=== PATIENT | male | born 1975 | race Caucasian/White ===

== ENCOUNTER 2016-11-10 16:41 | Emergency (ER) | payer OTHER ==
[2016-11-10 16:55] VITALS: BP 99/67
[2016-11-10] MEDS ORDERED: Lidocaine 1% with EPINEPHrine 1:100,000 20 ML MDV INJECT ONE (17:17)
[2016-11-10] MEDS ORDERED: Lidocaine 1% with EPINEPHrine 1:100,000 20 ML MDV ONE (17:17)
--- NOTE | 2016-11-10 17:27 | EDM.PDOC ---
ED HPI GENERAL MEDICAL PROBLEM - General Chief Complaint: Upper Extremity Injury/Pain Stated Complaint: [facility] Time Seen by Provider: 11/10/16 16:54 Source of Information: Reports: Patient History Limitations: Reports: Intoxication - History of Present Illness INITIAL COMMENTS - FREE TEXT/NARRATIVE: 41 y/o right-hand dominant male presents with R hand injury. Has been drinking ETOH today. Found outside of bar intoxicated with bleeding R hand. Apparently there was broken glass at the scene. Patient has no idea how he injured his hand. +moderate R hand pain. Denies additional injury. No weakness/numbness. 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(s) Right Hand Pain Score (Numeric/FACES): 4 - Related Data Allergies Allergy/AdvReac Type Severity Reaction Status Date / Time cefaclor [From [facility]] Allergy Other Verified 11/10/16 16:45 Home Meds: Home Meds Albuterol Sulfate [Proair Hfa] 2 puff INH Q4HR PRN 11/10/16 [History] Albuterol Sulfate [Proair Respiclick] 1 dose INH QID PRN 11/10/16 [History] Amoxicillin/Potassium Clav [Amox-Clav 875-125 mg Tablet] 1 tab PO BID 11/10/16 [ History] Budesonide/Formoterol Fumarate [Symbicort 160-4.5 Mcg Inhaler] 2 puff INH BID [History] Ipratropium/Albuterol Sulfate [Iprat-Albut 0.5-3(2.5) mg/3 ml] 1 unit INH QID PRN 11/10/16 [History] Varenicline Tartrate [Chantix] 1 tab PO BID 11/10/16 [History] Past Medical History Respiratory History: Reports: Asthma, Sleep Apnea Other Respiratory History: wears c pap at night Gastrointestinal History: Reports: Chronic Diarrhea, GERD, Hemorrhoids Psychiatric History: Reports: Depression - Past Surgical History Musculoskeletal Surgical History: Reports: Arthroscopic Knee Social & Family History - Tobacco Use Smoking Status *Q: Current Every Day Smoker Years of Tobacco use: 20 Packs/Tins Daily: 0.5 - Caffeine Use Caffeine Use: Reports: Soda - Recreational Drug Use Recreational Drug Use: No Review of Systems - Review of Systems Review Of Systems: See Below Constitutional: Reports: No Symptoms Respiratory: Reports: No Symptoms Cardiovascular: Reports: No Symptoms Skin: Reports: Wound ED EXAM, GENERAL - Physical Exam Exam: See Below Exam Limited By: No Limitations General Appearance: Alert, WD/WN, No Apparent Distress Ears: Normal External Exam Nose: Normal Inspection Throat/Mouth: Normal Inspection, Normal Voice, No Airway Compromise Head: Atraumatic, Normocephalic Neck: Normal Inspection Respiratory/Chest: No Respiratory Distress Cardiovascular: Normal Peripheral Pulses Extremities: Other (R hand: approx 2.5 cm irregular laceration on palmar surface near base of index finger, subcutaneous, foreign debris/dirt/small rocks in wound. distal motor/sensation/perfusion intact. ) Psychiatric: Normal Affect, Normal Mood Skin Exam: Warm, Dry, Intact, Normal Color, No Rash ED TRAUMA EXTREMITY PROCEDURES - Laceration/Wound Repair Right Anterior Hand Lac/Wound Length In cm: 2.5 Appearance: Subcutaneous, Irregular, Moderately Contaminated Distal NVT: Neuro & Vascular Intact, No Tendon Injury Anesthetic Type: Local Local Anesthesia - Lidocaine (Xylocaine): 1% with EPI Local Anesthetic Volume: 4cc Skin Prep: Chlorhexidine (Hibiciens) Exploration/Debridement/Repair: Wound Explored, In a Bloodless Field, Explored to Base, Minimal Debridement, Foreign Material Removed Closed With: Sutures Suture Size: 4-0 # of Sutures: 2 Suture Type: Nylon Sterile Dressing Applied: Nurse Complications: No Course - Vital Signs Last Recorded V/S: Last Vital Signs Temp 36.9 C 11/10/16 16:53 Pulse 94 11/10/16 16:53 Resp 16 11/10/16 16:53 BP 99/67 11/10/16 16:53 Pulse Ox 97 11/10/16 16:53 - Orders/Labs/Meds Meds: Medications Discontinued Medications Generic Name Dose Route Start Last Admin Trade Name Radha PRN Reason Stop Dose Admin Lidocaine/Epinephrine Confirm 11/10/16 17:17 11/10/16 17:18 Xylocaine 1% With Epinephrine 1:100,000 Administered 11/10/16 17:18 Not Given Dose 20 ml .ROUTE .STK-MED ONE Lidocaine/Epinephrine 20 ml 11/10/16 17:17 11/10/16 17:19 Xylocaine 1% With Epinephrine 1:100,000 INJECT 11/10/16 17:18 20 ml ONETIME ONE Administration Departure - Departure Time of Disposition: 18:18 Disposition: Home, Self-Care 01 Clinical Impression: Hand laceration Qualifiers: Encounter type: initial encounter Foreign body presence: without foreign body Laterality: right Qualified Code(s): S61.411A - Laceration without foreign body of right hand, initial encounter Alcohol intoxication Qualifiers: Complication of substance-induced condition: uncomplicated Qualified Code(s): F10.920 - Alcohol use, unspecified with intoxication, uncomplicated - Discharge Information Instructions: Alcohol Intoxication, [id number], Laceration Care, Adult, Easy- to-Read Referrals: Ramiro Alberto MD [Primary Care Provider] - Forms: ED Department Discharge Additional Instructions: 1. Keep wound clean and dry. OK to wash with gentle soap/water. Then dry and cover with antibiotic cream. Keep wound covered until completely healed. Return to the ED for any signs of infection, including increased redness, swelling, pain, or pus under the wound. 2. Sutures should be removed in 10-14 days. You may have them removed by your primary care doctor or walk in clinic/urgent care.
== END 2016-11-10 18:47 | disposition home or self-care (01) ==
LOC: SUPCPDRO 16:41 → JD.ED 16:41
DX: S61.411A Laceration without foreign body of right hand, initial encounter (principal); F10.920 Alcohol use, unspecified with intoxication, uncomplicated; F17.210 Nicotine dependence, cigarettes, uncomplicated; J45.909 Unspecified asthma, uncomplicated; G47.30 Sleep apnea, unspecified; K21.9 Gastro-esophageal reflux disease without esophagitis; F32.9 Major depressive disorder, single episode, unspecified; Z98.890 Other specified postprocedural states; Z88.1 Allergy status to other antibiotic agents; X58.XXXA Exposure to other specified factors, initial encounter
CPT/HCPCS: 12001; 99283-25; 99284-25

== ENCOUNTER 2016-11-13 13:38 | Emergency (ER) | payer OTHER ==
[2016-11-13 14:37] VITALS: BP 154/92
[2016-11-13] MEDS ORDERED: Diphtheria,Pertussis(Acell),Tetanus Vaccine 0.5 ML SDV IM ONE (15:15)
--- NOTE | 2016-11-13 15:21 | EDM.PDOC ---
ED HPI GENERAL MEDICAL PROBLEM - General Chief Complaint: Upper Extremity Injury/Pain Stated Complaint: RE CK FINGER CANT BEND AND NUMB Time Seen by Provider: 11/13/16 14:05 Source of Information: Reports: Patient History Limitations: Reports: No Limitations - History of Present Illness INITIAL COMMENTS - FREE TEXT/NARRATIVE: The patient is a 41-year-old male who comes in with a chief complaint of difficulty moving his right index finger. He was seen here 2 days ago. At that time he was quite intoxicated. He had sustained a wound to the palmar surface of the hand thought likely to a glass shard cutting the hand. The wound was repaired and he was discharged. He comes in today because he's been having difficulty bending his index finger. States that he also some numbness in the finger. No additional complaint. Right Hand Pain Score (Numeric/FACES): 4 - Related Data Allergies Allergy/AdvReac Type Severity Reaction Status Date / Time cefaclor [From [facility]] Allergy Other Verified 11/10/16 16:45 Home Meds: Home Meds Albuterol Sulfate [Proair Hfa] 2 puff INH Q4HR PRN 11/10/16 [History] Albuterol Sulfate [Proair Respiclick] 1 dose INH QID PRN 11/10/16 [History] Amoxicillin/Potassium Clav [Amox-Clav 875-125 mg Tablet] 1 tab PO BID 11/10/16 [ History] Budesonide/Formoterol Fumarate [Symbicort 160-4.5 Mcg Inhaler] 2 puff INH BID [History] Ipratropium/Albuterol Sulfate [Iprat-Albut 0.5-3(2.5) mg/3 ml] 1 unit INH QID PRN 11/10/16 [History] Varenicline Tartrate [Chantix] 1 tab PO BID 11/10/16 [History] Past Medical History Respiratory History: Reports: Asthma, Sleep Apnea Other Respiratory History: wears c pap at night Gastrointestinal History: Reports: Chronic Diarrhea, GERD, Hemorrhoids Psychiatric History: Reports: Depression - Past Surgical History Musculoskeletal Surgical History: Reports: Arthroscopic Knee Social & Family History - Tobacco Use Smoking Status *Q: Current Every Day Smoker Years of Tobacco use: 25 Packs/Tins Daily: 0.5 - Caffeine Use Caffeine Use: Reports: Coffee, Soda - Recreational Drug Use Recreational Drug Use: No Review of Systems - Review of Systems Review Of Systems: See Below Constitutional: Denies: Fever Musculoskeletal: Reports: Hand Pain Neurological: Reports: Numbness, Weakness ED EXAM, GENERAL - Physical Exam Exam: See Below Exam Limited By: No Limitations General Appearance: Alert, WD/WN, No Apparent Distress Head: Atraumatic, Normocephalic Neck: Normal Inspection Respiratory/Chest: No Respiratory Distress Extremities: Other (Right hand: Palmar surface wound at the base of the index finger is repaired with sutures, wound is clean, dry, intact, no erythema or discharge. Index finger is held in extension. Patient is able to flex at the MCP joint but is not able to flex the finger at the DIP or PIP joints. Sensation is present but patient states subjectively feels decreased. No deformities.) Neurological: Alert Course - Vital Signs Last Recorded V/S: Last Vital Signs Temp 36.7 C 11/13/16 14:10 Pulse 85 11/13/16 14:10 Resp 20 11/13/16 14:10 BP 154/92 H 11/13/16 14:10 Pulse Ox 99 11/13/16 14:10 - Orders/Labs/Meds Orders: Active Orders 24 hr Category Date Time Status Vaccines to be Administered [RC] PER UNIT ROUTINE Care 11/13/16 15:15 Active Hand Comp Min 3V Rt [CR] Stat Exams 11/13/16 14:06 Taken Meds: Medications Discontinued Medications Generic Name Dose Route Start Last Admin Trade Name Freq PRN Reason Stop Dose Admin Diphtheria/Tetanus/Acell Pertussis 0.5 ml 11/13/16 15:15 11/13/16 15:25 Adacel IM 11/13/16 15:16 0.5 ml .ONCE ONE Administration - Re-Assessments/Exams Free Text/Narrative Re-Assessment/Exam: 11/13/16 18:06 Right hand x-ray shows normal bony alignment. Patient's exam is quite consistent with a flexor tendon injury. Will splint and referred to hand surgeon in [place] for further care. Patient will call Tuesday for an appointment. Discussed return precautions. Departure - Departure Time of Disposition: 16:00 Disposition: Home, Self-Care 01 Clinical Impression: Flexor tendon laceration of right hand with open wound Qualifiers: Encounter type: initial encounter Qualified Code(s): S66.821A - Laceration of other specified muscles, fascia and tendons at wrist and hand level, right hand , initial encounter - Discharge Information Instructions: Laceration Care, Adult Referrals: Ramiro Alberto MD [Primary Care Provider] - Forms: ED Department Discharge Additional Instructions: 1. Follow up with a hand surgeon as soon as possible, ideally early next week. You may call [facility] in [place] at [phone] to schedule or [facility] in [place] at [phone]. Tell them you have a flexor tendon laceration of the index finger of your right hand that needs to be surgically repaired as soon as possible. - My Orders Last 24 Hours: My Active Orders 11/13/16 14:06 Hand Comp Min 3V Rt [CR] Stat 11/13/16 15:15 Vaccines to be Administered [RC] PER UNIT ROUTINE - Assessment/Plan Last 24 Hours: My Active Orders 11/13/16 14:06 Hand Comp Min 3V Rt [CR] Stat 11/13/16 15:15 Vaccines to be Administered [RC] PER UNIT ROUTINE
--- NOTE | 2016-11-14 19:58 | CR ---
Right hand: Four views of the right hand were obtained. Comparison: No previous hand study. Joint spaces are maintained. Two small foreign objects are identified within the superficial soft tissues around the volar region of the first or second finger. Uncertain if this lies within the soft tissues or on top of the skin. No acute fracture, dislocation or other bony abnormality is seen. Soft tissue swelling is identified. Impression: 1. Several small foreign bodies as described above. Soft tissue swelling is seen. 2. No acute bony abnormality is identified on right hand exam. Diagnostic code #3
== END 2016-11-13 15:45 | disposition home or self-care (01) ==
LOC: JD.ED 13:38
DX: S66.821A Laceration of other specified muscles, fascia and tendons at wrist and hand level, right hand, initial encounter (principal); K21.9 Gastro-esophageal reflux disease without esophagitis; Z23 Encounter for immunization; F17.210 Nicotine dependence, cigarettes, uncomplicated; Z88.1 Allergy status to other antibiotic agents; W25.XXXA Contact with sharp glass, initial encounter
CPT/HCPCS: 73130-26-RT; 73130-RT; 90471; 90715; 99283; 99283-25

== ENCOUNTER 2017-02-27 23:52 | Emergency (ER) | payer OTHER ==
[2017-02-28 00:02] VITALS: BP 160/91
--- NOTE | 2017-02-28 00:07 | EDM.PDOC ---
ED HPI GENERAL MEDICAL PROBLEM - General Chief Complaint: Back Pain or Injury Stated Complaint: BACK PAIN,LEFT LEG GOING NUMB Time Seen by Provider: 02/27/17 23:59 - History of Present Illness INITIAL COMMENTS - FREE TEXT/NARRATIVE: 42-year-old male presents emergency room with low back pain and leg pain. Patient has no recollection of the specific injury to his back however his low back has been been getting more uncomfortable over the last few days. This evening he developed some numbness and tingling down his left leg and into his foot he describes it like his whole foot is tingly not necessarily completely numb. He has had no loss of bowel or bladder control. Patient does not have a history of significant back injuries in the past however he's had multiple mild back injuries over the years. He has been using ibuprofen maximal dose with out much improvement. Back Pain Score (Numeric/FACES): 8 - Related Data Allergies Allergy/AdvReac Type Severity Reaction Status Date / Time cefaclor [From [facility]] Allergy Other Verified 02/27/17 23:58 Home Meds: Home Meds Albuterol Sulfate [Proair Hfa] 2 puff INH Q4HR PRN 11/10/16 [History] Albuterol Sulfate [Proair Respiclick] 1 dose INH QID PRN 11/10/16 [History] Budesonide/Formoterol Fumarate [Symbicort 160-4.5 Mcg Inhaler] 2 puff INH BID [History] Ipratropium/Albuterol Sulfate [Iprat-Albut 0.5-3(2.5) mg/3 ml] 1 unit INH QID PRN 11/10/16 [History] Varenicline Tartrate [Chantix] 1 tab PO BID 11/10/16 [History] Montelukast [Singulair] 10 mg PO BEDTIME 02/27/17 [History] FLUoxetine [PROzac] 60 mg PO DAILY 02/28/17 [History] predniSONE [Prednisone] 40 mg PO BID #20 tablet 02/28/17 [Rx] Past Medical History Respiratory History: Reports: Asthma, Sleep Apnea Other Respiratory History: wears c pap at night Gastrointestinal History: Reports: Chronic Diarrhea, GERD, Hemorrhoids Psychiatric History: Reports: Depression - Past Surgical History Musculoskeletal Surgical History: Reports: Arthroscopic Knee Social & Family History - Tobacco Use Smoking Status *Q: Current Every Day Smoker Years of Tobacco use: 20 Packs/Tins Daily: 0.5 - Caffeine Use Caffeine Use: Reports: Soda - Recreational Drug Use Recreational Drug Use: No ED ROS GENERAL - Review of Systems Review Of Systems: See Below Constitutional: Reports: No Symptoms HEENT: Reports: No Symptoms Respiratory: Reports: No Symptoms GI/Abdominal: Reports: No Symptoms Neurological: Reports: No Symptoms ED EXAM,LOWER BACK PAIN/INJURY - Physical Exam Exam: See Below Exam Limited By: No Limitations General Appearance: Alert, No Apparent Distress Head: Atraumatic, Normocephalic Neck: Normal Inspection, Supple, Non-Tender, Full Range of Motion Respiratory/Chest: No Respiratory Distress, Lungs Clear, Normal Breath Sounds Cardiovascular: Regular Rate, Rhythm, No Edema, No Murmur Back Exam: Normal Inspection, Other (He has some vague muscle tightness in the upper buttocks on the left paraspinous muscles do not seem affected. He has no significant tenderness over the greater trochanter down the left. Straight leg raises at maximal flexion causes some discomfort in the Botox but did not make pain worse down into his leg). No: CVA Tenderness (L), CVA Tenderness (R), Vertebral Tenderness Extremities: Normal Inspection, Non-Tender, No Pedal Edema Neurological: Alert, Normal Mood/Affect, Other (Examination of his left lower leg shows normal month sulfa function throughout sharp dull discrimination is perfectly intact light touch discrimination is intact) Course - Vital Signs Last Recorded V/S: Last Vital Signs Temp 36.6 C 02/28/17 00:00 Pulse 79 02/28/17 00:00 Resp 18 02/28/17 00:00 BP 160/91 H 02/28/17 00:00 Pulse Ox 99 02/28/17 00:00 - Orders/Labs/Meds Meds: Medications Discontinued Medications Generic Name Dose Route Start Last Admin Trade Name Freq PRN Reason Stop Dose Admin Famotidine 20 mg 02/28/17 00:29 02/28/17 00:33 Pepcid PO 02/28/17 00:30 20 mg ONETIME ONE Administration Prednisone 60 mg 02/28/17 00:29 02/28/17 00:33 Prednisone PO 02/28/17 00:30 60 mg ONETIME ONE Administration - Re-Assessments/Exams Free Text/Narrative Re-Assessment/Exam: 02/28/17 00:30 Patient presents with what sounds like a low back strain he has no history of a specific injury. He has no bony discomfort in his back is exam is a little inconsistent however the patient I believe is telling us to the best of his ability what is going on its just with the present the symptoms present he has some muscle tightness in his lower Buttocks and down his leg he's developed some tingling sensation in his foot he cannot clarify where in his foot is just the whole thing feels a little numb. He is sitting up talking to me with his legs extended and this seems to be a more comfortable positions than some others it's even better if he leans towards the affected side. Sharp dull and light touch is entirely normal as is muscle testing and lower extremities he's lost no control of bowel or bladder. The patient will be started on Flexeril he can start this when he gets home he is been taking maximal ibuprofen we will give him a dose of prednisone and Pepcid here continue the prednisone for 4 days and then stop it. And then resume nonsteroidals. 02/28/17 00:32 Departure - Departure Time of Disposition: 00:32 Disposition: Home, Self-Care 01 Clinical Impression: Low back strain, Lumbar radiculopathy, acute - Discharge Information Prescriptions: predniSONE [Prednisone] 40 mg PO BID #20 tablet Instructions: Low Back Strain With Rehab-SportsMed Referrals: Ramiro Alberto MD [Primary Care Provider] - Forms: ED Department Discharge Additional Instructions: Return to emergency room with any questions problems worsening symptoms. Follow-up with your regular physician this next week for recheck. You been started on prednisone this is an anti-inflammatory do not use ibuprofen or Aleve along with this. He'll take 40 mg twice a day for 5 days when you run out of this resume Aleve 2 tablets twice daily with meals. You been started on Flexeril, cyclobenzaprine, this is a muscle relaxant take one nightly. Allow 12 hours after using this medication before driving or returning to work. Tomorrow take one every 8 hours then resume nighttime dosing. It is strongly advised that he start yourself on famotidine, or Pepcid, 20 mg twice daily while taking the prednisone and the Aleve.
[2017-02-28] MEDS ORDERED: Famotidine 20 MG Tab PO ONE (00:29)
[2017-02-28] MEDS ORDERED: predniSONE 20 MG Tab PO ONE (00:29)
== END 2017-02-28 00:50 | disposition home or self-care (01) ==
LOC: JD.ED 23:52
DX: S39.012A Strain of muscle, fascia and tendon of lower back, initial encounter (principal); M54.16 Radiculopathy, lumbar region; J45.909 Unspecified asthma, uncomplicated; F17.210 Nicotine dependence, cigarettes, uncomplicated; Z88.1 Allergy status to other antibiotic agents; Z79.899 Other long term (current) drug therapy; X58.XXXA Exposure to other specified factors, initial encounter
CPT/HCPCS: 99283; A9270

== ENCOUNTER 2017-05-01 12:02 | Emergency (ER) | payer BC, OTHER ==
[2017-05-01 12:16] VITALS: BP 145/87
[2017-05-01] MEDS ORDERED: Levofloxacin 750 MG Tab PO ONE (13:46)
--- NOTE | 2017-05-01 13:48 | EDM.PDOC ---
ED HPI GENERAL MEDICAL PROBLEM - General Chief Complaint: Respiratory Problem Stated Complaint: SOB BODY ACHES Time Seen by Provider: 05/01/17 12:48 Source of Information: Reports: Patient, RN Notes Reviewed - History of Present Illness INITIAL COMMENTS - FREE TEXT/NARRATIVE: 42 year old male with onset of cough, mostly nonprod yesterday, worse today. Chills, no fever. No major nasal or sinus kim., denies sore throat. Had R hand surgery with gen. anesth. 2 days ago. Mild ant chest discomfort with coughing. Not otherwise short of breath. He did do a neb treatment at home this morning and that did give some help. Chest Pain Score (Numeric/FACES): 6 Generalized Pain Score (Numeric/FACES): 4 - Related Data Allergies Allergy/AdvReac Type Severity Reaction Status Date / Time cefaclor [From [facility]] Allergy Other Verified 02/27/17 23:58 Home Meds: Home Meds Albuterol Sulfate [Proair Hfa] 2 puff INH Q4HR PRN 11/10/16 [History] Albuterol Sulfate [Proair Respiclick] 1 dose INH QID PRN 11/10/16 [History] Budesonide/Formoterol Fumarate [Symbicort 160-4.5 Mcg Inhaler] 2 puff INH BID [History] Ipratropium/Albuterol Sulfate [Iprat-Albut 0.5-3(2.5) mg/3 ml] 1 unit INH QID PRN 11/10/16 [History] Varenicline Tartrate [Chantix] 1 tab PO BID 11/10/16 [History] Montelukast [Singulair] 10 mg PO BEDTIME 02/27/17 [History] FLUoxetine [PROzac] 60 mg PO DAILY 02/28/17 [History] Hydrocodone/Acetaminophen [Hydrocodon-Acetaminophn 10-300] 1 each PO Q6H PRN 01/08 [History] Levofloxacin [Levaquin] 750 mg PO DAILY #7 tab 05/01/17 [Rx] buPROPion HCl [Wellbutrin Xl] 150 mg PO DAILY 05/01/17 [History] Past Medical History Respiratory History: Reports: Asthma, Sleep Apnea Other Respiratory History: wears c pap at night Gastrointestinal History: Reports: Chronic Diarrhea, GERD, Hemorrhoids Psychiatric History: Reports: Depression - Past Surgical History GI Surgical History: Reports: None Musculoskeletal Surgical History: Reports: Arthroscopic Knee, Other (See Below) Other Musculoskeletal Surgeries/Procedures:: tendon repair to right hand using tendon from right foot Social & Family History - Tobacco Use Smoking Status *Q: Never Smoker Years of Tobacco use: 20 Packs/Tins Daily: 0.5 Used Tobacco, but Quit: No Second Hand Smoke Exposure: No - Caffeine Use Caffeine Use: Reports: None - Recreational Drug Use Recreational Drug Use: No ED ROS GENERAL - Review of Systems Review Of Systems: See Below HEENT: Denies: Rhinitis, Sinus Problem, Throat Pain Respiratory: Reports: Wheezing (mild), Cough, Sputum (scant). Denies: Shortness of Breath, Pleuritic Chest Pain Cardiovascular: Reports: Chest Pain (anterior upper chest with coughing) GI/Abdominal: Denies: Abdominal Pain, Nausea, Vomiting Musculoskeletal: Reports: Other (Feels somewhat achy all over). Denies: Leg Pain, Muscle Pain Skin: Denies: Rash Neurological: Denies: Dizziness ED EXAM, GENERAL - Physical Exam Exam: See Below General Appearance: Alert, No Apparent Distress Eye Exam: Bilateral Eye: PERRL Nose: Normal Inspection Throat/Mouth: Normal Inspection, Normal Oropharynx Head: No: Facial Swelling Neck: Supple, Full Range of Motion Respiratory/Chest: No Respiratory Distress, Lungs Clear, Wheezing (slight bilat) . No: Rales, Rhonchi Cardiovascular: Regular Rate, Rhythm GI/Abdominal: Soft, Non-Tender Extremities: No: Pedal Edema, Leg Pain, Increased Warmth (wearing walking boot R foot), Redness Course - Vital Signs Last Recorded V/S: Last Vital Signs Temp 97.1 F 05/01/17 12:13 Pulse 88 05/01/17 12:13 Resp 19 05/01/17 12:13 BP 145/87 H 05/01/17 12:13 Pulse Ox 99 05/01/17 12:13 - Orders/Labs/Meds Orders: Active Orders 24 hr Category Date Time Status Chest 1V Frontal [CR] Stat Exams 05/01/17 12:54 Taken Meds: Medications Discontinued Medications Generic Name Dose Route Start Last Admin Trade Name Freq PRN Reason Stop Dose Admin Levofloxacin 750 mg 05/01/17 13:46 05/01/17 13:53 Levaquin PO 05/01/17 13:47 750 mg ONETIME ONE Administration - Re-Assessments/Exams Free Text/Narrative Re-Assessment/Exam: 05/01/17 13:59 CXR shows some perihilar haziness most compatable with bronchitis, possible early pneumonia, will start on Levaquin 750 mg daily for 8 days. Departure - Departure Time of Disposition: 13:44 Disposition: Home, Self-Care 01 Condition: Fair Clinical Impression: Bronchitis - Discharge Information Prescriptions: Levofloxacin [Levaquin] 750 mg PO DAILY #7 tab Instructions: Acute Bronchitis, Adult Referrals: Ramiro Alberto MD [Primary Care Provider] - Forms: ED Department Discharge Additional Instructions: vaporizer or steam as needed, levaquin 750 mg daily today and for the next 7 days, follow up clinic if not much better within 5 to 7 days as expected, return to ED as needed if sx worsening in any way. - My Orders Last 24 Hours: My Active Orders 05/01/17 12:54 Chest 1V Frontal [CR] Stat - Assessment/Plan Last 24 Hours: My Active Orders 05/01/17 12:54 Chest 1V Frontal [CR] Stat
--- NOTE | 2017-05-02 07:58 | CR ---
Chest: Frontal view of the chest was obtained. Comparison: No prior chest x-ray. Heart size is slightly enlarged. Upper mediastinum is normal. Pulmonary vessels are slightly congested. Lungs otherwise are clear. Bony structures are unremarkable. Impression: 1. Heart size is slightly enlarged with pulmonary vessels appearing slightly congested. Diagnostic code #3
== END 2017-05-01 13:55 | disposition home or self-care (01) ==
LOC: JD.ED 12:02
DX: J40 Bronchitis, not specified as acute or chronic (principal); G47.30 Sleep apnea, unspecified; K21.9 Gastro-esophageal reflux disease without esophagitis; F32.9 Major depressive disorder, single episode, unspecified; Z79.2 Long term (current) use of antibiotics; Z79.899 Other long term (current) drug therapy; Z88.1 Allergy status to other antibiotic agents
CPT/HCPCS: 71045; 99285; A9270; 99283

== ENCOUNTER 2019-12-20 18:15 | Emergency (ER) | payer BC, OTHER ==
[2019-12-20 18:36] VITALS: BP 144/92; PULSE 80
--- NOTE | 2019-12-20 19:21 | EDM.PDOCBH ---
ED HPI GENERAL MEDICAL PROBLEM - General Chief Complaint: Behavioral/Psych Stated Complaint: DEPRESSED AND SUICIDAL IDEATIONS Time Seen by Provider: 12/20/19 18:42 Source of Information: Reports: Patient, RN Notes Reviewed History Limitations: Reports: No Limitations - History of Present Illness INITIAL COMMENTS - FREE TEXT/NARRATIVE: Patient is a 44-year-old male who presents to the ED for evaluation of his suicidal ideations. Patient notes that he has been having increased suicidal thoughts for the past few days. He states he is also been sleeping more, and just generally not taking care of himself. He states that he has not been eating well, and sleeping quite a bit throughout the day. He notes that he recently lost his job, has gone through a divorce, and has had a lot of life stressors that have piled up on him. He states that he has no active plan to end his life, but he had thoughts today like he should just not be alive. He has not talked to anyone about his thoughts. His parents brought him into the ER for evaluation regarding his thoughts. He does have a diagnosis of depression and states that he was on 60 mg Prozac and was feeling pretty good so he stopped taking this medication. But he states he recently started taking this roughly 1 month ago. His primary care provider is Dr. Ramiro Gann. He states that he realizes that he does have a reason to live and this would be his 7-year-old daughter, and is wanting help for these thoughts. He notes that he lost his job due to methamphetamine use and marijuana use. He states that he wa s smoking methamphetamines and marijuana to mask the pain of his recent divorce. He notes his last meth use was about 4-5 days ago. He states he last smoked pot roughly 1 day ago. He notes he has not used alcohol in the last week or so, he states he usually drinks a couple beers at a time, and this is a sporadic thing. He smokes 1/3 pack of cigarettes per day, roughly for the last 20 years. He further states that he is not hearing voices or seeing things that are not there. He states again that he was taking some [id number] sleeping pills, a few extra at a time to make himself to sleep. He thought maybe at one point he would just not wake up. Patient denies any other sick-like symptoms, fever/chills, cough/shortness of breath, nausea/vomiting/diarrhea. - Related Data Allergies Allergy/AdvReac Type Severity Reaction Status Date / Time cefaclor [From [facility]] Allergy Other Verified 12/20/19 18:36 Home Meds: Home Meds Albuterol Sulfate [Proair Hfa] 2 puff INH Q4HR PRN 11/10/16 [History] Ipratropium/Albuterol Sulfate [Iprat-Albut 0.5-3(2.5) mg/3 ml] 1 unit INH QID PRN 11/10/16 [History] FLUoxetine [PROzac] 60 mg PO DAILY 02/28/17 [History] Albuterol/Ipratropium [DuoNeb 3.0-0.5 MG/3 ML] 3 ml INH Q4H PRN 12/20/19 [History] Fluticasone/Vilanterol [Breo Ellipta 100-25 MCG Inhalation Kit] 1 puff INH DAILY 12/20/19 [History] Past Medical History Respiratory History: Reports: Asthma, Sleep Apnea Other Respiratory History: wears c pap at night Gastrointestinal History: Reports: Chronic Diarrhea, GERD, Hemorrhoids Psychiatric History: Reports: Depression - Infectious Disease History Infectious Disease History: Reports: Chicken Pox - Past Surgical History Musculoskeletal Surgical History: Reports: Arthroscopic Knee, Other (See Below) Other Musculoskeletal Surgeries/Procedures:: tendon repair to right hand using tendon from right foot Social & Family History - Family History Family Medical History: Noncontributory - Tobacco Use Tobacco Use Status *Q: Current Every Day Tobacco User Years of Tobacco use: 20 Packs/Tins Daily: 0.3 - Caffeine Use Caffeine Use: Reports: None - Recreational Drug Use Recreational Drug Use: Yes Drug Use in Last 12 Months: Yes Recreational Drug Type: Reports: Marijuana/Hashish, Methamphetamine Recreational Drug Use Frequency: Weekly ED ROS GENERAL - Review of Systems Review Of Systems: Comprehensive ROS is negative, except as noted in HPI. ED EXAM, BEHAVIORAL HEALTH - Physical Exam Exam: See Below Exam Limited By: No Limitations General Appearance: Alert, WD/WN, No Apparent Distress Eye Exam: Bilateral Eye: EOMI, Normal Inspection, PERRL Throat/Mouth: Normal Inspection, Normal Lips, Normal Teeth, Normal Gums, Normal Oropharynx, Normal Voice, No Airway Compromise Head: Atraumatic, Normocephalic Neck: Normal Inspection, Supple, Non-Tender, Full Range of Motion Respiratory/Chest: No Respiratory Distress, Lungs Clear, Normal Breath Sounds, No Accessory Muscle Use, Chest Non-Tender Cardiovascular: Normal Peripheral Pulses, Regular Rate, Rhythm, No Murmur Extremities: Normal Inspection, Normal Capillary Refill Neurological: Alert, Normal Reflexes, No Motor/Sensory Deficits, Oriented x 3 Psychiatric: Alert, Oriented, Depressed Mood, Tearful (pt is tearful, and states that he knows he needs to be in this world for his daughter.), Suicidal Thoughts (just thinks he should not be in the world at times). No: Homicidal Thoughts, Suicidal Plan, Auditory Hallucinations, Visual Hallucinations, Threatening Behavior Skin Exam: Warm, Dry, Intact, Normal color, No rash #2 Interpretation EKG Date: 12/20/19 Time: 19:33 Rhythm: NSR Rate (Beats/Min): 69 [place]: Normal P-Wave: Present QRS: Normal ST-T: Normal QT: Normal Comparison: NA - No Prior EKG EKG Interpretation Comments: No obvious ischemia or acute ST changes noted, reviewed by myself and Dr. Mcclellan. COURSE, BEHAVIORAL HEALTH COMP - Course Vital Signs: Last Vital Signs Temp 97.5 F 12/20/19 18:33 Pulse 80 12/20/19 18:33 Resp 18 12/20/19 18:33 BP 144/92 H 12/20/19 18:33 Pulse Ox 97 12/20/19 18:33 Orders, Labs, Meds: Active Orders 24 hr Category Date Time Status EKG Documentation Completion [RC] STAT Care 12/20/19 19:04 Active AMPHETAMINES, CONF, UR Routine Lab 12/20/19 21:19 Ordered CANNABINOID (THC) CONFIRM, UR Routine Lab 12/20/19 21:19 Ordered CORONAVIRUS COVID-19 OPHELIA [MOLEC] Stat Lab 12/20/19 20:21 Received Laboratory Tests 12/20/19 12/20/19 12/20/19 Range/Units 19:21 19:21 19:21 WBC 10.71 H (4.23-9.07) K/mm3 RBC 5.40 (4.63-6.08) M/mm3 Hgb 16.4 (13.7-17.5) gm/dl Hct 50.2 (40.1-51.0) % MCV 93.0 H (79.0-92.2) fl MCH 30.4 (25.7-32.2) pg MCHC 32.7 (32.2-35.5) g/dl RDW Std Deviation 46.4 H (35.1-43.9) fL Plt Count 210 (163-337) K/mm3 MPV 10.4 (9.4-12.3) fl Neutrophils % (Manual) 80 H (40-60) % Band Neutrophils % 0 (0-10) % Lymphocytes % (Manual) 16 L (20-40) % Atypical Lymphs % 0 % Monocytes % (Manual) 3 (2-10) % Eosinophils % (Manual) 0 L (0.8-7.0) % Basophils % (Manual) 1 (0.2-1.2) Platelet Estimate Adequate Plt Morphology Comment Normal Hypochromasia 1+ slight RBC Morph Comment Abnormal Sodium 143 (136-145) mEq/L Potassium 3.8 (3.5-5.1) mEq/L Chloride 105 (98-107) mEq/L Carbon Dioxide 30 (21-32) mEq/L Anion Gap 11.8 (5-15) BUN 13 (7-18) mg/dL Creatinine 1.1 (0.7-1.3) mg/dL Est Cr Clr Drug Dosing 104.56 mL/min Estimated GFR (MDRD) > 60 (>60) mL/min BUN/Creatinine Ratio 11.8 L (14-18) Glucose 101 (74-106) mg/dL Calcium 9.3 (8.5-10.1) mg/dL Total Bilirubin 0.4 (0.2-1.0) mg/dL AST 12 L (15-37) U/L ALT 35 (16-63) U/L Alkaline Phosphatase 85 (46-116) U/L Total Protein 7.3 (6.4-8.2) g/dl Albumin 3.6 (3.4-5.0) g/dl Globulin 3.7 gm/dL Albumin/Globulin Ratio 1.0 (1-2) TSH 3rd Generation 2.745 (0.358-3.74) uIU/mL Salicylates 2.0 L (2.8-20) mg/dL Urine Opiates Screen (YBUTXU=328) Ur Buprenorphine Scrn (CUTOFF=10) Ur Oxycodone Screen (PKN3KX=156) Urine Methadone Screen (YDU7SX=694) Ur Propoxyphene Screen (WRRJRW=820) Acetaminophen 0 L (10-30) ug/mL Ur Barbiturates Screen (UGBKMZ=434) Ur Tricyclics Screen (UAVUCG=133) Ur Phencyclidine Scrn (CUTOFF=25) Ur Amphetamine Screen (UNETKX=384) U Methamphetamines Scrn (HRKJYA=420) U Benzodiazepines Scrn (OPKIIS=941) U Cocaine Metab Screen (RWDSMR=276) U Marijuana (THC) Screen (CUTOFF=50) Ethyl Alcohol 0.00 (0.00) gm% SARS-CoV-2 RNA (OPHELIA) (NEGATIVE) 12/20/19 12/20/19 Range/Units 20:21 20:57 WBC (4.23-9.07) K/mm3 RBC (4.63-6.08) M/mm3 Hgb (13.7-17.5) gm/dl Hct (40.1-51.0) % MCV (79.0-92.2) fl MCH (25.7-32.2) pg MCHC (32.2-35.5) g/dl RDW Std Deviation (35.1-43.9) fL Plt Count (163-337) K/mm3 MPV (9.4-12.3) fl Neutrophils % (Manual) (40-60) % Band Neutrophils % (0-10) % Lymphocytes % (Manual) (20-40) % Atypical Lymphs % % Monocytes % (Manual) (2-10) % Eosinophils % (Manual) (0.8-7.0) % Basophils % (Manual) (0.2-1.2) Platelet Estimate Plt Morphology Comment Hypochromasia RBC Morph Comment Sodium (136-145) mEq/L Potassium (3.5-5.1) mEq/L Chloride (98-107) mEq/L Carbon Dioxide (21-32) mEq/L Anion Gap (5-15) BUN (7-18) mg/dL Creatinine (0.7-1.3) mg/dL Est Cr Clr Drug Dosing mL/min Estimated GFR (MDRD) (>60) mL/min BUN/Creatinine Ratio (14-18) Glucose (74-106) mg/dL Calcium (8.5-10.1) mg/dL Total Bilirubin (0.2-1.0) mg/dL AST (15-37) U/L ALT (16-63) U/L Alkaline Phosphatase (46-116) U/L Total Protein (6.4-8.2) g/dl Albumin (3.4-5.0) g/dl Globulin gm/dL Albumin/Globulin Ratio (1-2) TSH 3rd Generation (0.358-3.74) uIU/mL Salicylates (2.8-20) mg/dL Urine Opiates Screen Negative (YMKZVC=971) Ur Buprenorphine Scrn Negative (CUTOFF=10) Ur Oxycodone Screen Negative (FVS4BY=938) Urine Methadone Screen Negative (SKF9SG=317) Ur Propoxyphene Screen Negative (VDDXAO=613) Acetaminophen (10-30) ug/mL Ur Barbiturates Screen Negative (OLTFDE=668) Ur Tricyclics Screen Negative (EHSHBB=921) Ur Phencyclidine Scrn Negative (CUTOFF=25) Ur Amphetamine Screen Negative (UMGIXE=337) U Methamphetamines Scrn Presumptive positive H (VNAIGD=038) U Benzodiazepines Scrn Negative (NSHJXE=516) U Cocaine Metab Screen Negative (TIFSMH=576) U Marijuana (THC) Screen Presumptive positive H (CUTOFF=50) Ethyl Alcohol (0.00) gm% SARS-CoV-2 RNA (OPHELIA) Negative (NEGATIVE) Discharge vs Psych Eval/Treatment:: 12/20/19 19:22 Patient presents to the ED for evaluation of his ongoing suicidal ideations. Patient just recently started taking his Prozac medication, roughly 1 month ago. It is likely this could not be at a therapeutic level that would be benefiting him at this time. Nonetheless we will get labs, and clear him for psychiatric placement and try to call around to find him a bed. 12/20/19 21:18 The patient's laboratory evaluation is fairly unremarkable. His urine screen is positive for marijuana and methamphetamine use as suspected. Confirmatory tests have been ordered at this time. COVID-19 screen is still pending, Once this returns we will try to find him placement. 12/20/19 21:24 The patient's COVID-19 screen has come back negative. I am in contact with Devon Tena; Dr. Garcia is on for psychiatry [facility]. She does ultimately accept the patient for inpatient admission at this time. Fortunately [facility] also has staff available for transfer tonight as well. Departure - Departure Time of Disposition: 21:29 Disposition: DC/Tfer to Acute Hospital 02 Condition: Good Clinical Impression: Depression with suicidal ideation - Discharge Information *PRESCRIPTION DRUG MONITORING PROGRAM REVIEWED*: No *COPY OF PRESCRIPTION DRUG MONITORING REPORT IN PATIENT MOLLY: No Referrals: Ramiro Alberto MD [Primary Care Provider] - Forms: ED Department Discharge Sepsis Event Note (ED) - Evaluation Sepsis Screening Result: No Definite Risk - Focused Exam Vital Signs: Vital Signs Temp Pulse Resp BP Pulse Ox 12/20/19 18:33 97.5 F 80 18 144/92 H 97 - My Orders Last 24 Hours: My Active Orders 12/20/19 19:04 EKG Documentation Completion [RC] STAT 12/20/19 20:21 CORONAVIRUS COVID-19 OPHELIA [MOLEC] Stat 12/20/19 21:19 AMPHETAMINES, CONF, UR Routine CANNABINOID (THC) CONFIRM, UR Routine - Assessment/Plan Last 24 Hours: My Active Orders 12/20/19 19:04 EKG Documentation Completion [RC] STAT 12/20/19 20:21 CORONAVIRUS COVID-19 OPHELIA [MOLEC] Stat 12/20/19 21:19 AMPHETAMINES, CONF, UR Routine CANNABINOID (THC) CONFIRM, UR Routine
[2019-12-20 19:59] LABS: ACETAMINOPHEN 0 ug/mL (10-30)
== END 2019-12-20 22:48 ==
LOC: JD.ED 18:15
DX: F32.9 Major depressive disorder, single episode, unspecified (principal); F17.210 Nicotine dependence, cigarettes, uncomplicated; J45.909 Unspecified asthma, uncomplicated; Z20.828 Contact with and (suspected) exposure to other viral communicable diseases; Z88.1 Allergy status to other antibiotic agents; Z79.899 Other long term (current) drug therapy
CPT/HCPCS: 36415; 80053; 80306; 80307; 84443; 85007; 85027; 93005; 93010; 99284; 99285-25; G0480; U0002

== ENCOUNTER 2020-12-24 00:06 | Emergency (ER) | payer BC, OTHER ==
--- NOTE | 2020-12-24 01:15 | EDM.PDOC ---
ED HPI GENERAL MEDICAL PROBLEM - General Chief Complaint: Respiratory Problem Stated Complaint: COVID+/WEAK/SOB Time Seen by Provider: 12/24/20 00:54 Source of Information: Reports: Patient History Limitations: Reports: No Limitations - History of Present Illness INITIAL COMMENTS - FREE TEXT/NARRATIVE: Mr. Montano is a very pleasant 45-year-old gentleman who now presents the ED stating that he started feeling poorly this past 12/17/2020, including nausea, weakness, and body aches. He was tested for the SARS-CoV-2 virus at [address] [facility] that same day, receiving a positive result. Since then, he has had intermittent dyspnea, lightheadedness, nausea without emesis, body aches and weakness, and a slight cough. He states that his lightheadedness has gotten worse today. He also reports that he had some watery diarrhea the first few days, but none since. No urinary symptoms. The patient states that he has taken ibuprofen and an [id number] cough and cold remedy, which has helped a little. The patient acknowledges that he has not developed any new symptoms that brings him to the ED, only that his symptoms have continued. Here in the ED, the patient's initial BP is found to be modestly elevated at 155/82, with tachypnea of 24 rpm. He is afebrile, saturating 98% on room air. He appears to be comfortable, in no acute distress. Prior to 12/17/2020, the patient denies having a recent fever, chills, sore throat, ear pain, nasal or sinus congestion, cough, dyspnea, chest pain, palpitations, nausea, vomiting, constipation, diarrhea, abdominal pain, urinary symptoms, recent weight gain or weight loss, recent bloody bowel movements or black bowel movements, recent joint aches, headaches, or rashes. The patient's PCP is Dr. Ramiro Alberto. He has not received a COVID vaccination, nor an influenza vaccination this season. Generalized Pain Score (Numeric/FACES): 4 - Related Data Allergies Allergy/AdvReac Type Severity Reaction Status Date / Time cefaclor [From Ceclor] Allergy Severe Other Verified 12/24/20 00:38 Home Meds: Home Meds Albuterol Sulfate [Proair Hfa] 2 puff INH Q4HR PRN 11/10/16 [History] Ipratropium/Albuterol Sulfate [Iprat-Albut 0.5-3(2.5) mg/3 ml] 1 unit INH QID PRN 11/10/16 [History] FLUoxetine [PROzac] 60 mg PO DAILY 02/28/17 [History] Albuterol/Ipratropium [DuoNeb 3.0-0.5 MG/3 ML] 3 ml INH Q4H PRN 12/20/19 [History] Fluticasone/Vilanterol [Breo Ellipta 100-25 MCG Inhalation Kit] 1 puff INH DAILY 12/20/19 [History] Past Medical History Respiratory History: Reports: Asthma (PFT-confirmed), Sleep Apnea (nightly CPAP) Gastrointestinal History: Reports: GERD (untreated), Hemorrhoids Psychiatric History: Reports: Addiction (methamphetamine), Depression Endocrine/Metabolic History: Reports: Obesity/BMI 30+ - Infectious Disease History Infectious Disease History: Reports: Chicken Pox, Novel Coronavirus (dx'd 12/17/2020) - Past Surgical History HEENT Surgical History: Reports: Oral Surgery (dental extractions) Musculoskeletal Surgical History: Reports: Arthroscopic Knee (left, x 2), Other (See Below) (Right hand tendon repair from right foot) Social & Family History - Tobacco Use Tobacco Use Status *Q: Current Every Day Tobacco User Years of Tobacco use: 30 Packs/Tins Daily: 0.3 Packs/Tins Daily Comment: Down from 1 ppd Tobacco Use Comment: Started smoking 1990 - Caffeine Use Caffeine Use: Reports: Coffee, Soda - Alcohol Use Alcohol Use History: Yes Alcohol Use Frequency: Socially - Recreational Drug Use Recreational Drug Use: Yes Drug Use in Last 12 Months: Yes Recreational Drug Type: Reports: Marijuana/Hashish (smokes few x per week), Methamphetamine (last smoked late Nov 2020) - Living Situation & Occupation Living situation: Reports: , Alone Occupation: Employed ([employer]) ED ROS GENERAL - Review of Systems Review Of Systems: Comprehensive ROS is negative, except as noted in HPI. ED EXAM, GENERAL - Physical Exam Exam: See Below Exam Limited By: No Limitations General Appearance: Alert, WD/WN, No Apparent Distress Eye Exam: Bilateral Eye: EOMI, Normal Inspection Ears: Normal External Exam, Hearing Grossly Normal Nose: Normal Inspection Throat/Mouth: Normal Inspection, Normal Lips, Normal Voice, No Airway Compromise Head: Atraumatic, Normocephalic Neck: Normal Inspection, Full Range of Motion Respiratory/Chest: No Respiratory Distress, Lungs Clear, Normal Breath Sounds, No Accessory Muscle Use. No: Decreased Breath Sounds, Crackles, Rhonchi, Wheezing, Stridor, Prolonged Expiration Cardiovascular: Normal Peripheral Pulses, Regular Rate, Rhythm, No Edema, No Gallop, No JVD, No Murmur, No Rub Peripheral Pulses: 3+: Radial (L), Radial (R) GI/Abdominal: Normal Bowel Sounds, Soft, Non-Tender, No Organomegaly, No Distention, No Abnormal Bruit, No Mass Back Exam: Normal Inspection, Full Range of Motion, NT Extremities: Normal Inspection, Normal Range of Motion, No Pedal Edema, Normal Capillary Refill Neurological: Alert, Oriented, Normal Cognition, No Motor/Sensory Deficits Psychiatric: Normal Affect Skin Exam: Warm, Dry, Intact, Normal Color, No Rash Course - Vital Signs Last Recorded V/S: Last Vital Signs Temp 36.0 C L 12/24/20 00:35 Pulse 75 12/24/20 02:55 Resp 16 12/24/20 02:55 BP 127/79 12/24/20 02:55 Pulse Ox 99 12/24/20 02:55 - Orders/Labs/Meds Orders: Active Orders 24 hr Category Date Time Status Orthostatic Vital Signs [RC] STAT Care 12/24/20 01:12 Active Vital Signs [RC] Q15M Care 12/24/20 02:18 Active Chest 1V Frontal [CR] Stat Exams 12/24/20 01:12 Taken Chest w Cont [CT] Stat Exams 12/24/20 02:18 Taken EPINEPHrine [Adrenalin] Med 12/24/20 02:18 Active 0.3 mg IM ASDIRECTED PRN Famotidine [Pepcid] Med 12/24/20 02:18 Active 20 mg IVPUSH ASDIRECTED PRN Sodium Chloride 0.9% [Normal Saline] 1,000 ml Med 12/24/20 02:30 Active IV ASDIRECTED Sodium Chloride 0.9% [Saline Flush] Med 12/24/20 02:30 Active 30 ml FLUSH ASDIRECTED diphenhydrAMINE [Benadryl] Med 12/24/20 02:18 Active 50 mg IVPUSH ASDIRECTED PRN methylPREDNISolone Sod Succ [Solu-MEDROL] Med 12/24/20 02:18 Active 125 mg IVPUSH ASDIRECTED PRN Medication Orders Diphenhydramine HCl (Diphenhydramine 50 Mg/Ml Sdv) 50 mg IVPUSH ASDIRECTED PRN PRN Reason: hypersensitivity reaction Epinephrine HCl (Epinephrine 1 Mg/Ml Sdv) 0.3 mg IM ASDIRECTED PRN PRN Reason: hypersensitivity reaction Famotidine (Famotidine 20 Mg/2 Ml Sdv) 20 mg IVPUSH ASDIRECTED PRN PRN Reason: hypersensitivity reaction Sodium Chloride (Normal Saline) 1,000 mls @ 150 mls/hr IV ASDIRECTED JOHN Last Admin: 12/24/20 02:35 Dose: 150 mls/hr Documented by: MARY Methylprednisolone Sodium Succinate (Methylprednisolone Sodium Succinate 125 Mg/2 Ml Sdv) 125 mg IVPUSH ASDIRECTED PRN PRN Reason: hypersensitivity reaction Sodium Chloride (Sodium Chloride 0.9% 10 Ml Syringe) 30 ml FLUSH ASDIRECTED [facility] Labs: Laboratory Tests 12/24/20 12/24/20 Range/Units 01:25 01:25 WBC 6.39 (4.23-9.07) K/mm3 RBC 4.60 L (4.63-6.08) M/mm3 Hgb 14.1 D (13.7-17.5) gm/dl Hct 43.0 (40.1-51.0) % MCV 93.5 H (79.0-92.2) fl MCH 30.7 (25.7-32.2) pg MCHC 32.8 (32.2-35.5) g/dl RDW Std Deviation 46.2 H (35.1-43.9) fL Plt Count 103 L D (163-337) K/mm3 MPV 10.7 (9.4-12.3) fl Neutrophils % (Manual) 61 H (40-60) % Band Neutrophils % 5 (0-10) % Lymphocytes % (Manual) 25 (20-40) % Atypical Lymphs % 0 % Monocytes % (Manual) 8 (2-10) % Eosinophils % (Manual) 0 L (0.8-7.0) % Basophils % (Manual) 1 (0.2-1.2) Platelet Estimate Decreased RBC Morph Comment Normal Sodium 143 (136-145) mEq/L Potassium 4.1 (3.5-5.1) mEq/L Chloride 109 H (98-107) mEq/L Carbon Dioxide 30 (21-32) mEq/L Anion Gap 8.1 (5-15) BUN 11 (7-18) mg/dL Creatinine 0.9 (0.7-1.3) mg/dL Est Cr Clr Drug Dosing 126.49 mL/min Estimated GFR (MDRD) > 60 (>60) mL/min BUN/Creatinine Ratio 12.2 L (14-18) Glucose 80 (70-99) mg/dL Calcium 8.4 L (8.5-10.1) mg/dL Total Bilirubin 0.3 (0.2-1.0) mg/dL AST 16 (15-37) U/L ALT 20 (16-63) U/L Alkaline Phosphatase 78 (46-116) U/L C-Reactive Protein 6.5 H* (<1.0) mg/dL Total Protein 6.1 L (6.4-8.2) g/dl Albumin 2.9 L (3.4-5.0) g/dl Globulin 3.2 gm/dL Albumin/Globulin Ratio 0.9 L (1-2) Meds: Medications Generic Name Dose Route Start Last Admin Trade Name Freq PRN Reason Stop Dose Admin Diphenhydramine HCl 50 mg 12/24/20 02:18 Diphenhydramine 50 Mg/Ml Sdv IVPUSH ASDIRECTED PRN hypersensitivity reaction Epinephrine HCl 0.3 mg 12/24/20 02:18 Epinephrine 1 Mg/Ml Sdv IM ASDIRECTED PRN hypersensitivity reaction Famotidine 20 mg 12/24/20 02:18 Famotidine 20 Mg/2 Ml Sdv IVPUSH ASDIRECTED PRN hypersensitivity reaction Sodium Chloride 1,000 mls @ 150 mls/hr 12/24/20 02:30 12/24/20 02:35 Normal Saline IV 150 mls/hr ASDIRECTED JOHN Administration Methylprednisolone Sodium Succinate 125 mg 12/24/20 02:18 Methylprednisolone Sodium Succinate 125 Mg/2 Ml Sdv IVPUSH ASDIRECTED PRN hypersensitivity reaction Sodium Chloride 30 ml 12/24/20 02:30 Sodium Chloride 0.9% 10 Ml Syringe FLUSH ASDIRECTED JOHN Discontinued Medications Generic Name Dose Route Start Last Admin Trade Name Freq PRN Reason Stop Dose Admin CASIRIVIMAB/IMDEVIMAB 10 ml/ 110 mls @ 220 mls/hr 12/24/20 02:18 12/24/20 02:54 Sodium Chloride IV 12/24/20 02:47 220 mls/hr ONETIME ONE Administration - Re-Assessments/Exams Free Text/Narrative Re-Assessment/Exam: 12/24/20 01:13 I have ordered orthostatics, several blood tests, and a portable chest x-ray. 12/24/20 01:49 The patient is not orthostatic. 12/24/20 02:13 Portable chest radiograph reviewed. The cardiac silhouette is within normal limits. No pulmonary vascular congestion. No pleural effusions seen on this AP view. No focal infiltrate, but there is a slightly increased haziness to the bilateral lungs, consistent with mild COVID pneumonia. No pneumothorax. There is an approximately 2.6 cm circular opacity to the lower left lung, concerning for a tumor, not seen on prior chest radiograph dated 05/01/2017. Formal read per the Radiologist pending. The patient's CBC is remarkable for thrombocytopenia of 103,000, and is otherwise unremarkable. His CMP is unremarkable. His CRP is elevated at 6.5. 12/24/20 02:19 Test results discussed with the patient. I recommended that we obtain a CT of the chest with IV contrast to further evaluate the opacity seen at his lower left lung. The patient agreed. He will be given IV fluid. Based on the patient's BMI, his history of PFT-proven asthma, he is a candidate for an infusion of the monoclonal antibody Regen-Cov. Because his CRP is elevated, I recommended that he receive it. We discussed that at length, including that it is an emergency use authorization medication intended to decrease the likelihood of patients diagnosed with COVID-19 from developing severe symptoms or , and that it does not treat current symptoms. I explained that Regen-Cov is still under investigation, that it is not fully FDA approved, and that the potential benefits and risks of the medication are not fully known. The patient was notified that if he receives Regen-Cov, that it may decrease his immune response to a COVID vaccination, should he decide to get it after he recovers from his current illness. I explained that there is a possibility that he could have an allergic reaction either during or after the infusion, as well as brief pain, bleeding, bruising of the skin, soreness, swelling, and possible infection at the infusion site. Other side effects could occur. I discussed that there are other potential treatment options that are currently not FDA approved to treat COVID-19. The patient was notified that the infusion takes about half an hour, after which he would be expected to remain in the ED for another hour to observe for possible side effects. He was offered the "Patient and caregiver AIDE Regen-Cov fact sheet" to read and review. All questions were answered. The patient expressed understanding, and would like to proceed with the infusion. The infusion will be started after he returns from CT. 12/24/20 04:11 CT of the chest with IV contrast is read by Imelda as: 1. Bilateral multifocal ground-glass infiltrates consistent with acute bilateral viral pneumonia. 2. No large pulmonary emboli. 12/24/20 04:14 CT results discussed with the patient. His Regen-Cov infusion finished over an hour ago, and he has not had any adverse effects. I will discharge her home with recommendation that he stay adequately hydrated and take OTC ibuprofen as needed for discomfort. He is to continue to isolate through 12/27/2020, at which time he should get retested. Departure - Departure Time of Disposition: 04:16 Disposition: Home, Self-Care 01 Condition: Good Clinical Impression: COVID-19 - Discharge Information *PRESCRIPTION DRUG MONITORING PROGRAM REVIEWED*: Not Applicable *COPY OF PRESCRIPTION DRUG MONITORING REPORT IN PATIENT MOLLY: Not Applicable Instructions: 10 Things You Can Do to Manage Your COVID-19 Symptoms at Home - [facility] (09/05/2020), COVID-19: What to Do If You Are Sick- [facility] (05/07/2020) Referrals: Ramior Alberto MD [Primary Care Provider] - Forms: ED Department Discharge Additional Instructions: You were seen in the emergency room for symptoms of shortness of breath, lightheadedness, nausea, body aches, and a slight cough after being diagnosed with COVID-19 on 12/17/2020. Work-up in the ER included positional blood pressure checks, several blood tests, a chest x-ray, and a CT of your chest with IV contrast. Your work-up found that you have mild COVID pneumonia, and because your CRP, a measure of inflammation, was elevated, you were treated with an infusion of the monoclonal antibodies Regen-Cov (Regeneron). This will reduce the likelihood that you will suffer severe consequences of COVID-19. We recommend that you stay adequately hydrated and take [id number] ibuprofen as needed for discomfort. It is imperative that you continue to strictly isolate through 12/27/2020, at which time you should get retested for the SARS-CoV-2 virus. If you are still positive, you need to continue to isolate until you test negative. If any other problems, please do not hesitate to return to the ER. Sepsis Event Note (ED) - Evaluation Sepsis Screening Result: No Definite Risk - Focused Exam Vital Signs: Vital Signs Temp Pulse Resp BP Pulse Ox 12/24/20 02:55 75 16 127/79 99 12/24/20 00:35 36.0 C L 81 24 H 155/82 H 98 - My Orders Last 24 Hours: My Active Orders 12/24/20 01:12 Orthostatic Vital Signs [RC] STAT Chest 1V Frontal [CR] Stat 12/24/20 02:18 Vital Signs [RC] Q15M Chest w Cont [CT] Stat EPINEPHrine [Adrenalin] 0.3 mg IM ASDIRECTED PRN Famotidine [Pepcid] 20 mg IVPUSH ASDIRECTED PRN diphenhydrAMINE [Benadryl] 50 mg IVPUSH ASDIRECTED PRN methylPREDNISolone Sod Succ [Solu-MEDROL] 125 mg IVPUSH ASDIRECTED PRN 12/24/20 02:30 Sodium Chloride 0.9% [Normal Saline] 1,000 ml IV ASDIRECTED Sodium Chloride 0.9% [Saline Flush] 30 ml FLUSH ASDIRECTED - Assessment/Plan Last 24 Hours: My Active Orders 12/24/20 01:12 Orthostatic Vital Signs [RC] STAT Chest 1V Frontal [CR] Stat 12/24/20 02:18 Vital Signs [RC] Q15M Chest w Cont [CT] Stat EPINEPHrine [Adrenalin] 0.3 mg IM ASDIRECTED PRN Famotidine [Pepcid] 20 mg IVPUSH ASDIRECTED PRN diphenhydrAMINE [Benadryl] 50 mg IVPUSH ASDIRECTED PRN methylPREDNISolone Sod Succ [Solu-MEDROL] 125 mg IVPUSH ASDIRECTED PRN 12/24/20 02:30 Sodium Chloride 0.9% [Normal Saline] 1,000 ml IV ASDIRECTED Sodium Chloride 0.9% [Saline Flush] 30 ml FLUSH ASDIRECTED
[2020-12-24] MEDS ORDERED: methylPREDNISolone Sodium Succinate 125 MG/2 ML SDV IVPUSH PRN (02:18)
[2020-12-24] MEDS ORDERED: EPINEPHrine 1 MG/ML SDV IM PRN (02:18)
[2020-12-24] MEDS ORDERED: Famotidine 20 MG/2 ML SDV IVPUSH PRN (02:18)
[2020-12-24] MEDS ORDERED: diphenhydrAMINE 50 MG/ML SDV IVPUSH PRN (02:18)
[2020-12-24] MEDS ORDERED: Sodium Chloride 0.9% 10 ML Syringe FLUSH SCH (02:30)
[2020-12-24] MEDS ORDERED: Sodium Chloride 0.9% 1,000 ML IV SCH (02:30)
[2020-12-24 02:57] VITALS: BP 127/79; PULSE 75
--- NOTE | 2020-12-24 07:06 | CT ---
CT chest Technique: Multiple axial sections through the chest were obtained. Intravenous contrast was utilized. Reconstructed coronal and sagittal images were obtained. Comparison: Prior chest x-ray of 05/01/17. Findings: Thoracic aorta shows no aneurysm. Mediastinum shows small lymph nodes which are felt to be within normal limits. No axillary adenopathy is seen. No pericardial thickening is seen. Visualized upper abdominal structures show no discrete abnormality. Patchy areas of increased density are scattered on both sides of the chest. No acute osseous finding is appreciated. Impression: 1. Multiple areas of increased density on both sides of the chest. Please exclude Covid pneumonia as an etiology. Findings could otherwise represent multifocal bacterial or viral pneumonia. 2. No other acute abnormality is appreciated on CT study of the chest. Diagnostic code #3 I agree with preliminary report from [email or web address] finalized on 12/24/20, 4:59 AM CDT, code 1
--- NOTE | 2020-12-24 08:52 | CR ---
Chest: Frontal view of the chest was obtained. Comparison: Prior chest x-ray of 05/01/17. Patchy years of increased density are seen within both sides of the chest. Heart size and mediastinum are normal. Bony structures show nothing acute. Impression: 1. Patchy increased density within both sides of the chest which is felt compatible with COVID pneumonia. Diagnostic code #3
== END 2020-12-24 04:30 | disposition home or self-care (01) ==
LOC: JD.ED 00:06
DX: U07.1 COVID-19 (principal); R79.82 Elevated C-reactive protein (CRP); J45.909 Unspecified asthma, uncomplicated; F17.210 Nicotine dependence, cigarettes, uncomplicated; E66.9 Obesity, unspecified; Z68.36 Body mass index [BMI] 36.0-36.9, adult; Z88.1 Allergy status to other antibiotic agents; Z79.899 Other long term (current) drug therapy
CPT/HCPCS: 36415; 71045; 71260; 80053; 85007; 85027; 86140; 99285; J7030; M0243; Q0243

== ENCOUNTER 2024-08-07 10:09 | Inpatient (IN) | payer SELFPAY ==
[2024-08-07] MEDS: Albuterol/Ipratropium 3.0-0.5 MG/3 ML Neb Soln ONE (10:17)
[2024-08-07] MEDS: methylPREDNISolone Sodium Succinate 125 MG/2 ML SDV IVPUSH ONE (10:33)
[2024-08-07 10:35] LABS: BASOPHILS ABSOLUTE AUTO 0.1 K/mm3 (0.0-0.2); BASOPHILS PERCENT AUTO 0.9 % (0.0-1.0); EOSINOPHILS ABSOLUTE AUTO 0.5 K/mm3 (0.0-0.4); EOSINOPHILS PERCENT AUTO 6.5 % (0.0-6.0); HEMATOCRIT 48.2 % (42.0-52.0); HEMOGLOBIN 15.7 gm/dl (14.0-18.0); IMMATURE GRAN ABSOLUTE AUTO 0.07 K/mm3 (0.00-0.05); IMMATURE GRAN PERCENT AUTO 0.9 % (0.0-0.4); LYMPHOCYTES ABSOLUTE AUTO 2.2 K/mm3 (1.0-4.8); LYMPHOCYTES PERCENT AUTO 27.9 % (24.0-44.0); MEAN CORPUSCULAR HEMOGLOBIN 30.8 pg (28.0-32.0); MEAN CORPUSCULAR HGB CONC 32.6 g/dl (32.0-36.0); MEAN CORPUSCULAR VOLUME 94.5 fl (83.0-99.0); MEAN PLATELET VOLUME 10.1 fl (9.4-12.4); MONOCYTES ABSOLUTE AUTO 0.8 K/mm3 (0.0-0.8); MONOCYTES PERCENT AUTO 10.2 % (0.0-8.0); NEUTROPHILS ABSOLUTE AUTO 4.2 K/mm3 (1.8-7.7); NEUTROPHILS PERCENT AUTO 53.6 % (41.0-71.0); PLATELET COUNT,PLT 210 K/mm3 (150-400); WHITE BLOOD CELL COUNT,WBC 7.84 K/mm3 (3.9-11.3)
[2024-08-07] MEDS: Sodium Chloride 0.9% 10 ML Syringe FLUSH PRN (10:35)
[2024-08-07 10:53] LABS: A/G RATIO 1.1 (1-2); ALBUMIN 3.6 g/dl (3.4-5.0); ANION GAP 12.5 (5-15); BILIRUBIN TOTAL 0.4 mg/dL (0.2-1.0); CALCIUM 9.8 mg/dL (8.5-10.1); EST CRCL DRUG DOSING (CG) 109.15 mL/min; MAGNESIUM 1.9 mg/dL (1.8-2.4); POTASSIUM,K 4.5 mEq/L (3.5-5.1); PROTEIN TOTAL,TP 6.9 g/dl (6.4-8.2)
[2024-08-07] MEDS ORDERED: Magnesium Sulfate 2 GM/50 mL 2 GM in Premix Bag 1 BAG IV ONE (11:21)
[2024-08-07] MEDS: Magnesium Sulfate 2 GM/50 mL 2 GM in Premix Bag 1 BAG IV ONE (11:39)
[2024-08-07] MEDS: Sodium Chloride 0.9% 1,000 ML IV ONE (11:39)
[2024-08-07] MEDS ORDERED: Acetaminophen 325 MG Tab PO PRN (13:11)
[2024-08-07] MEDS: Albuterol/Ipratropium 3.0-0.5 MG/3 ML Neb Soln NEB SCH ×2 (14:45→14:46)
[2024-08-08] MEDS: Enoxaparin 40 MG/0.4 ML Syringe SUBCUT SCH (08:43)
[2024-08-08] MEDS: methylPREDNISolone Sodium Succinate 40 MG/1 ML SDV IVPUSH SCH (08:43)
[2024-08-08 14:14] VITALS: BP 143/86; PULSE 73
[2024-08-08] MEDS: Mometasone Furoate HFA 100mcg/Puff 13 GM Inhaler INH SCH (14:49)
[2024-08-08] MEDS ORDERED: Mometasone Furoate HFA 200 mcg/Puff 13 GM Inhaler INH SCH (21:00)
== END 2024-08-08 14:56 | disposition home or self-care (01) | DRG 203 ==
LOC: JD.ED 10:09 → JD.MS 13:11
PROVIDERS: ADMIT Family Medicine; ATTEND Family Medicine
PROC: 5A09357 Assistance with Respiratory Ventilation, Less than 24 Consecutive Hours, Continuous Positive Airway Pressure (ICD-10-PCS; principal; 2024-08-08)
DX: J45.901 Unspecified asthma with (acute) exacerbation (principal); G47.30 Sleep apnea, unspecified; Z66 Do not resuscitate; K21.9 Gastro-esophageal reflux disease without esophagitis; F32.A Depression, unspecified; E66.9 Obesity, unspecified; F17.200 Nicotine dependence, unspecified, uncomplicated; F41.0 Panic disorder [episodic paroxysmal anxiety]; Z68.39 Body mass index [BMI] 39.0-39.9, adult; Z86.16 Personal history of COVID-19; Z88.1 Allergy status to other antibiotic agents; Z79.52 Long term (current) use of systemic steroids; Z98.890 Other specified postprocedural states
CPT/HCPCS: 36415; 71045; 71045-26; 80053; 83735; 83880; 84443; 84484; 85025; 93005; 93010; 94640; 94660; 94761; 96361; 96365; 96375; 99284; 99285-25; A9270-GY; J1650; J2919; J3475; J7030